=== PATIENT | female | born 1960 | race Caucasian/White ===

== ENCOUNTER → 2019-01-11 16:01 | Outpatient (CLI) | payer OTHER, SELFPAY ==
--- NOTE | 2019-01-11 | DI.MG.S_ITS ---
BILATERAL DIGITAL SCREENING MAMMOGRAM 3D/2D WITH CAD: 01/11/2019 CLINICAL: Routine screening. Comparison is made to exams dated: 04/27/2017 mammogram, 04/23/2015 mammogram, and 11/08/2013 mammogram - [facility]. The tissue of both breasts is heterogeneously dense. This may lower the sensitivity of mammography. Current study was also evaluated with a Computer Aided Detection (CAD) system. No significant masses, calcifications, or other findings are seen in either breast. There has been no significant interval change. IMPRESSION: NEGATIVE There is no mammographic evidence of malignancy. A 1 year screening mammogram is recommended. This exam was interpreted at Station ID: [id number]. NOTE: For mammograms, a report in lay terms will be sent to the patient. Approximately 15% of breast malignancies will not be visualized mammographically. In the management of a palpable breast mass, a negative mammogram must not discourage biopsy of a clinically suspicious lesion. Electronically Signed By: Jerry toussaint/[email or web address]:01/17/2019 11:59:42 letter sent: Normal Exam ACR BI-RADS Category 1: Negative [id number]
== END ==
PROVIDERS: Visit Provider Internal Medicine
DX: Z12.31 Encounter for screening mammogram for malignant neoplasm of breast (principal)
CPT/HCPCS: 77063; 77067

== ENCOUNTER → 2020-04-30 19:19 | Outpatient (ROUT) | payer MEDICARE, SELFPAY ==
[2020-04-30 19:46] LABS: Add Manual Diff / Slide Review NO; Basophils Absolute Auto 0 /uL (0-100); Basophils Percent Auto 0.7 % (0-2); Eosinophils Absolute Auto 100 /uL (0-450); Hematocrit 35.6 % (36-46); Hemoglobin 11.6 g/dL (12.0-16.0); Lymphocytes Absolute Auto 1000 /uL (1100-4500); Lymphocytes Percent Auto 13.7 % (25-40); Mean Corpuscular HGB Conc 32.6 % (30-36); Mean Corpuscular Hemoglobin 28.8 PG (26-34); Mean Corpuscular Volume 88.2 fL (80-100); Monocytes Absolute Auto 400 /uL (0-900); Monocytes Percent Auto 6.4 % (3-14); Neutrophils Absolute Auto 5400 /uL (1500-7000); Neutrophils Percent Auto 78.2 % (50-75); Platelet Count 165 X10^3/uL (150-400); Red Blood Cell Count 4.04 X10^6/uL (4.0-5.2); Red Cell Distribution Width 13.9 % (11.6-14.8)
[2020-04-30 19:58] LABS: Alanine Aminotransferase 28 IU/L (<35); Albumin 3.9 g/dL (3.5-5.0); Albumin Globulin Ratio 1.2 (1.0-2.8); Alkaline Phosphatase 106 U/L (38-126); Aspartate Aminotransferase 37 IU/L (14-36); BUN Creatinine Ratio 30.8 (6-22); Bilirubin Total 0.6 mg/dL (0.2-1.3); Blood Urea Nitrogen 36 mg/dL (7-17); Calcium 9.6 mg/dL (8.4-10.2); Carbon Dioxide 34 mmol/L (22-32); Chloride 102 mmol/L (98-107); Cholesterol 139 mg/dL (140-199); Estimated Glomerular Filt Rate 47.7 mL/min (>60); Globulin 3.2 g/dL (1.7-4.1); Glucose 154 mg/dL (70-100); HDL Cholesterol 53 mg/dL (40-60); HEMOLYSIS < 15 (0-50); LDL Cholesterol Calculated 59 mg/dL (<100); Potassium 4.6 mmol/L (3.4-5.1); Sodium 139 mmol/L (137-145); Total Protein 7.1 g/dL (6.3-8.2); Triglycerides 133 mg/dL (35-150)
[2020-04-30 20:26] LABS: TSH w/ Reflex to FT4 2.97 uIU/mL (0.47-4.68)
== END ==
PROVIDERS: Visit Provider Internal Medicine
DX: I25.10 Atherosclerotic heart disease of native coronary artery without angina pectoris (principal); E78.2 Mixed hyperlipidemia
CPT/HCPCS: 80053; 80061; 84443; 85025

== ENCOUNTER → 2020-07-10 19:33 | Outpatient (ROUT) | payer OTHER, SELFPAY ==
[2020-07-10 20:10] LABS: HEMOLYSIS < 15 (0-50); Potassium 4.5 mmol/L (3.4-5.1)
[2020-07-10 20:11] LABS: BUN Creatinine Ratio 38.7 (6-22); Blood Urea Nitrogen 46 mg/dL (7-17); Calcium 9.4 mg/dL (8.4-10.2); Carbon Dioxide 34 mmol/L (22-32); Chloride 101 mmol/L (98-107); Estimated Glomerular Filt Rate 46.6 mL/min (>60); Glucose 125 mg/dL (70-100); Sodium 137 mmol/L (137-145)
== END ==
PROVIDERS: PCP Internal Medicine; Visit Provider Internal Medicine
DX: N17.9 Acute kidney failure, unspecified (principal)
CPT/HCPCS: 80048

== ENCOUNTER 2021-10-23 15:16 | Emergency (ER) | payer MEDICARE, SELFPAY ==
[2021-10-23] VITALS (22 sets, daily range): BP systolic 128–159; BP diastolic 58–86; PULSE 61–85; RESP 17–29; TEMP 38.1; O2SAT 91–97
--- NOTE | 2021-10-23 16:31 | DI.RAD.S_ITS ---
PROCEDURE: XR CHEST 1V INDICATIONS: suspected sepsis TECHNIQUE: One view of the chest was acquired. COMPARISON: [facility], , CHEST 2 VIEW, 06/26/2017, 16:05. FINDINGS: Surgical changes and devices: None. Lungs and pleura: Lungs are clear. No pleural effusions or pneumothorax. Mediastinum: Mediastinal contours appear normal. Heart size is enlarged. Bones and chest wall: No suspicious bony lesions. Overlying soft tissues appear unremarkable. IMPRESSION: Cardiomegaly without vascular congestion. Underlying mild chronic interstitial changes. No focal infiltrate. Approved by: Mickey Gerber M.D. on 10/23/2021 at 16:40
[2021-10-23 16:41] LABS: Add Manual Diff / Slide Review NO; Basophils Absolute Auto 0 /uL (0-100); Basophils Percent Auto 0.4 % (0-2); Eosinophils Absolute Auto 0 /uL (0-450); Eosinophils Percent Auto 0.1 % (2-4); Hematocrit 33.1 % (36-46); Hemoglobin 11.2 g/dL (12.0-16.0); Lymphocytes Absolute Auto 200 /uL (1100-4500); Lymphocytes Percent Auto 4.1 % (25-40); Mean Corpuscular Hemoglobin 29.6 PG (26-34); Mean Corpuscular Volume 87.3 fL (80-100); Monocytes Absolute Auto 800 /uL (0-900); Monocytes Percent Auto 14.3 % (3-14); Neutrophils Absolute Auto 4400 /uL (1500-7000); Neutrophils Percent Auto 81.1 % (50-75); Platelet Count 128 X10^3/uL (150-400); Red Blood Cell Count 3.79 X10^6/uL (4.0-5.2); White Blood Cell Count 5.4 X10^3/uL (4.5-11.0)
[2021-10-23 16:46] LABS: Alanine Aminotransferase 23 IU/L (<35); Albumin 3.7 g/dL (3.5-5.0); Albumin Globulin Ratio 1.2 (1.0-2.8); Alkaline Phosphatase 77 U/L (38-126); Aspartate Aminotransferase 41 IU/L (14-36); BUN Creatinine Ratio 33.6 (6-22); Bilirubin Total 0.5 mg/dL (0.2-1.3); Blood Urea Nitrogen 43 mg/dL (7-17); Calcium 8.9 mg/dL (8.4-10.2); Carbon Dioxide 24 mmol/L (22-32); Chloride 108 mmol/L (98-107); Estimated Glomerular Filt Rate 48 mL/min (>60); Globulin 3.1 g/dL (1.7-4.1); Glucose 311 mg/dL (70-100); HEMOLYSIS < 15 (0-50); Lactate (Lactic Acid) 1.5 mmol/L (0.7-2.1); Lipase 48 U/L (23-300); Potassium 4.9 mmol/L (3.4-5.1); Sodium 140 mmol/L (137-145); Total Protein 6.8 g/dL (6.3-8.2)
[2021-10-23] MEDS: SODIUM CHLORIDE 0.9% 1,000 ML 1000 ML IV (17:00)
[2021-10-23 17:02] LABS: Procalcitonin 0.08 ng/mL (<0.5)
--- NOTE | 2021-10-23 17:33 | ED_ITS ---
HPI - Fever General Chief Complaint: Fever Stated Complaint: hacking, coughing, lethargic, Covid + Time Seen by Provider: 10/23/21 16:24 Source: patient and family Mode of arrival: Wheelchair Limitations: no limitations History of Present Illness HPI Narrative: The patient became ill yesterday. She has fatigue and myalgia. She has a mild headache. She denies sore throat. She does have cough, but no dyspnea. She has no nausea vomiting. Home testing was positive for COVID-19. She has loss of appetite, nothing to eat or drink. She has no urinary complaints. She has no rashes. She has type 1 diabetes, her glucose was 135 this morning. She uses an insulin pump. Related Data Home Medications Medication Instructions Recorded Confirmed INSULIN HUMAN LISPRO 10ML (HUMALOG) #0 06/16/10 02/26/21 Niacin (Niacinamide) #0 06/16/10 02/26/21 OMEPRAZOLE #0 06/16/10 02/26/21 ROSUVASTATIN CALCIUM (Crestor) #0 06/16/10 02/26/21 Respironics Dreamstation BIPAP #1 ea 08/04/18 02/26/21 losartan PO 01/26/19 02/26/21 FUROSEMIDE (Lasix) 20 mg PO #0 10/18/20 02/26/21 metoprolol succinate 25 mg 25 mg PO DAILY 10/18/20 02/26/21 tablet,extended release 24 hr Allergies Allergy/AdvReac Type Severity Reaction Status Date / Time No Known Drug Allergies Allergy Verified 10/23/21 15:31 Review of Systems Constitutional Constitutional: Reports as per HPI, Reports anorexia, Reports body ache(s), Reports chills, Denies excessive sweating, Reports fatigue, Denies fever(s), Reports headache(s), Reports malaise and Reports weakness Eyes Eyes: Denies change in vision ENT Ears, Nose, Mouth, and Throat: Denies vertigo, Denies dizziness, Denies otalgia and Reports headache(s) Cardiovascular Cardiovascular: Denies chest pain, Denies rapid heart rate, Denies pedal edema, Denies edema and Denies dyspnea Respiratory Respiratory: Reports cough and Denies dyspnea Gastrointestinal Gastrointestinal: Denies abdominal pain, Denies cramping, Denies nausea and Denies vomiting Genitourinary Genitourinary: Denies dysuria Musculoskeletal Musculoskeletal: Reports arthralgias, Reports back pain and Reports myalgias Integumentary/Breasts Skin/Breast: Denies new lesions and Denies rash Neurologic Neurologic: Denies vertigo, Denies dizziness, Reports headache(s) and Reports weakness Endocrine Endocrine: Denies excessive sweating and Reports fatigue Hematologic/Lymphatic On Anticoagulants: No Patient History Medical History Central sleep apnea (~2011) Conductive hearing loss History of coma Hypercholesterolemia Hypertension Insomnia 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 Obesity (BMI 30-39.9) Obstructive sleep apnea of adult (~2011) Primary insomnia Snoring Tinea pedis (09/22/02) Type I diabetes mellitus Surgical History Endometriosis (03/17/02) Social History marital status: details: remington Wheatley, lives in [place] number of children: 3 household members: spouse and children lives independently: Yes caregiver/support person: No housing: house occupational status: disabled substance use type: does not use Exam Initial Vital Signs Initial Vital Signs: Vital Signs Temperature 100.5 F H 10/23/21 15:27 Pulse Rate 79 10/23/21 15:27 Respiratory Rate 18 10/23/21 15:27 Blood Pressure 156/69 H 10/23/21 15:27 Pulse Oximetry 97 10/23/21 15:27 Const General: cooperative, healthy appearing and comfortable Limitations: mental status not altered [facility] Head: normal to inspection, normocephalic and atraumatic Mouth: oropharynx normal Throat: posterior oropharynx normal Eyes General: Yes appearance normal, both eyes and all related structures Pupils: PERRL and pupil size EOM: EOM intact bilaterally and EOM abnormal Neck Neck: full ROM, no meningeal signs and No lymphadenopathy Chest Chest: normal palpation of entire chest wall Resp Auscultation: clear to auscultation bilaterally Cardio Rate: regular rate Rhythm: regular rhythm Heart Sounds: S1 normal, S2 normal, no click, no murmurs and no rubs GI Inspection: normal to inspection Palpation: soft, No guarding, No mass and No tender Percussion: normal to percussion Auscultation: normal bowel sounds General: No CVA tenderness Back/Spine/Pelvis Back: other (Generalized back pain. No visual defects.) Skin General: no rashes or lesions noted Neuro General: patient alert, patient awake, patient oriented x3, no meningeal signs and no focal motor deficits Extrem General: normal to inspection, full ROM, no pedal edema and no calf tenderness Psych Mental Status: mental status grossly normal Course Course Course Narrative: Patient has improved with IV fluids, and Tylenol for body aches. She has type 1 diabetes. Renal insufficiency is noted on the lab work. Her respiratory status is good. She is feeling much better, I am suggesting delaying any decision of taking Paxlovid. She can discuss the medication with her doctor tomorrow if she is not improving. I informed her that a renal dosing protocol is available. Orders Ordered: ED Orders 10/23/21 15:40 Complete Blood Count AUTO DIFF Stat Comprehensive Metabolic Panel Stat Lactate (Lactic Acid) Stat Lipase Stat Procalcitonin Stat 10/23/21 16:31 XR chest 1V Stat EKG-12 Lead Stat RT Consult Eval and Treat NOW 10/23/21 17:00 Respiratory Panel (Film Array) Stat 10/23/21 17:10 Blood Culture Stat Discontinued Medications Acetaminophen (Acetaminophen 325 Mg Tablet) 975 mg PO NOW ONE Stop: 10/23/21 17:36 Last Admin: 10/23/21 18:39 Dose: 975 mg Documented by: PER Sodium Chloride (Normal Saline 0.9%) 1,000 mls @ 1,000 mls/hr IV BOLUS ONE Stop: 10/23/21 17:30 Last Infusion: 10/23/21 19:07 Dose: 0 mls/hr Documented by: Admin: 10/23/21 17:00 Dose: 1,000 mls/hr Documented by: MODESTA Vital Signs Vital signs: Vital Signs - 8 hr 10/23/21 15:27 10/23/21 15:43 10/23/21 16:00 Temperature 100.5 F H Pulse Rate 79 79 82 Respiratory Rate 18 Blood Pressure 156/69 H Pulse Oximetry 97 96 93 10/23/21 16:30 10/23/21 17:00 10/23/21 17:15 Temperature Pulse Rate 79 85 81 Respiratory Rate 24 Blood Pressure 139/67 Pulse Oximetry 95 95 95 MDM - Fever Lab Data Result diagrams: 10/23/21 15:40 10/23/21 15:40 Labs: Lab Results 10/23/21 10/23/21 10/23/21 Range/Units 15:40 15:40 15:40 WBC 5.4 (4.5-11.0) X10^3/uL RBC 3.79 L (4.0-5.2) X10^6/uL Hgb 11.2 L (12.0-16.0) g/dL Hct 33.1 L (36-46) % MCV 87.3 (80-100) fL MCH 29.6 (26-34) PG MCHC 34.0 (30-36) % RDW 15.0 H (11.6-14.8) % Plt Count 128 L (150-400) X10^3/uL Neut % (Auto) 81.1 H (50-75) % Lymph % (Auto) 4.1 L (25-40) % Haralson % (Auto) 14.3 H (3-14) % Eos % (Auto) 0.1 L (2-4) % Baso % (Auto) 0.4 (0-2) % Neut # (Auto) 4400 (9743-7212) /uL Lymph # (Auto) 200 L (4606-7625) /uL Haralson # (Auto) 800 (0-900) /uL Eos # (Auto) 0 (0-450) /uL Baso # (Auto) 0 (0-100) /uL Sodium 140 (137-145) mmol/L Potassium 4.9 (3.4-5.1) mmol/L Chloride 108 H (98-107) mmol/L Carbon Dioxide 24 (22-32) mmol/L BUN 43 H (7-17) mg/dL Creatinine 1.28 H (0.52-1.04) mg/dL Estimated GFR 48 L (>60) mL/min BUN/Creatinine Ratio 33.6 H (6-22) Glucose 311 H (70-100) mg/dL Lactate 1.5 (0.7-2.1) mmol/L Calcium 8.9 (8.4-10.2) mg/dL Total Bilirubin 0.5 (0.2-1.3) mg/dL AST 41 H (14-36) IU/L ALT 23 (<35) IU/L Alkaline Phosphatase 77 (38-126) U/L Total Protein 6.8 (6.3-8.2) g/dL Albumin 3.7 (3.5-5.0) g/dL Globulin 3.1 (1.7-4.1) g/dL Albumin/Globulin Ratio 1.2 (1.0-2.8) Lipase 48 (23-300) U/L Procalcitonin 0.08 (<0.5) ng/mL Chlamy pneumoniae PCR (Not Detect) Adenovirus (PCR) (Not Detect) B. pertussis DNA (PCR) (Not Detecte) B.parapertussis DNA PCR (Not Detecte) Coronavirus OC43 (PCR) (Not Detect) Coronavirus HKU1 (PCR) (Not Detect) Coronavirus 229E (PCR) (Not Detect) SARS-CoV-2 (PCR) (Not Detecte) Coronavirus NL63 (PCR) (Not Detect) Human Metapneumovir PCR (Not Detect) Influenza Type A (PCR) (Not Detect) Influenza Type B (PCR) (Not Detect) M. pneumoniae (PCR) (Not Detect) Parainfluenza 1 (PCR) (Not Detect) Parainfluenza 2 (PCR) (Not Detect) Parainfluenza 3 (PCR) (Not Detect) Parainfluenza 4 (PCR) (Not Detect) RSV (PCR) (Not Detect) Entero/Rhino (PCR) (Not Detect) 10/23/21 Range/Units 17:00 WBC (4.5-11.0) X10^3/uL RBC (4.0-5.2) X10^6/uL Hgb (12.0-16.0) g/dL Hct (36-46) % MCV (80-100) fL MCH (26-34) PG MCHC (30-36) % RDW (11.6-14.8) % Plt Count (150-400) X10^3/uL Neut % (Auto) (50-75) % Lymph % (Auto) (25-40) % Haralson % (Auto) (3-14) % Eos % (Auto) (2-4) % Baso % (Auto) (0-2) % Neut # (Auto) (4559-8030) /uL Lymph # (Auto) (6140-4163) /uL Haralson # (Auto) (0-900) /uL Eos # (Auto) (0-450) /uL Baso # (Auto) (0-100) /uL Sodium (137-145) mmol/L Potassium (3.4-5.1) mmol/L Chloride (98-107) mmol/L Carbon Dioxide (22-32) mmol/L BUN (7-17) mg/dL Creatinine (0.52-1.04) mg/dL Estimated GFR (>60) mL/min BUN/Creatinine Ratio (6-22) Glucose (70-100) mg/dL Lactate (0.7-2.1) mmol/L Calcium (8.4-10.2) mg/dL Total Bilirubin (0.2-1.3) mg/dL AST (14-36) IU/L ALT (<35) IU/L Alkaline Phosphatase (38-126) U/L Total Protein (6.3-8.2) g/dL Albumin (3.5-5.0) g/dL Globulin (1.7-4.1) g/dL Albumin/Globulin Ratio (1.0-2.8) Lipase (23-300) U/L Procalcitonin (<0.5) ng/mL Chlamy pneumoniae PCR Not detected (Not Detect) Adenovirus (PCR) Not detected (Not Detect) B. pertussis DNA (PCR) Not detected (Not Detecte) B.parapertussis DNA PCR Not detected (Not Detecte) Coronavirus OC43 (PCR) Not detected (Not Detect) Coronavirus HKU1 (PCR) Not detected (Not Detect) Coronavirus 229E (PCR) Not detected (Not Detect) SARS-CoV-2 (PCR) Detected H (Not Detecte) Coronavirus NL63 (PCR) Not detected (Not Detect) Human Metapneumovir PCR Not detected (Not Detect) Influenza Type A (PCR) Not detected (Not Detect) Influenza Type B (PCR) Not detected (Not Detect) M. pneumoniae (PCR) Not detected (Not Detect) Parainfluenza 1 (PCR) Not detected (Not Detect) Parainfluenza 2 (PCR) Not detected (Not Detect) Parainfluenza 3 (PCR) Not detected (Not Detect) Parainfluenza 4 (PCR) Not detected (Not Detect) RSV (PCR) Not detected (Not Detect) Entero/Rhino (PCR) Not detected (Not Detect) Imaging Data Chest x-ray: Radiologist's Impression: ?Cardiomegaly without vascular congestion.? Underlying mild chronic interstitial changes.? No focal infiltrate. ? ECG Data Attestation: I personally reviewed and interpreted this ECG as follows: (Normal sinus rhythm rate 85 beats per minute. RBBB. LVH with repolarization ab normality. No acute ST elevation) Discharge Plan Departure Patient Disposition: Home Clinical Impression: COVID-19, Type I diabetes mellitus, Renal insufficiency Instructions: DI for COVID-19 (Suspected or Confirmed ) Activity Restrictions/Additional Instructions: Our testing has confirmed COVID-19. Your body aches, and the knowledge that you do not feel well as obvious. Your lungs are function well, your respiratory status is quite good. You would qualify for a COVID antiviral medication Paxlovid. However, your kidney function is poor, probably related to your diabetes. Paxlovid has a significant side effect, kidney injury. Your clinically doing well. My suggest is you take Tylenol for pain, rest and drink plenty of fluids. Paxlovid can be used in decreased dosing with poor kidneys, but you still must be concerned about your kidneys. If you are not feeling better tomorrow, contact your doctor and discuss the use of this medication once again. If you are feeling worse return to the ER. Prescriptions: No Action INSULIN HUMAN LISPRO 10ML (HUMALOG) Qty: 0 0RF Niacin (Niacinamide) Qty: 0 0RF OMEPRAZOLE Qty: 0 0RF ROSUVASTATIN CALCIUM (Crestor) Qty: 0 0RF FUROSEMIDE (Lasix) 20 mg PO Qty: 0 0RF (DME) Respironics Dreamstation BIPAP Qty: 1 0RF Dose Instruction: As directed Label Comments: Pressure: EPAP 5 IPAP 25 DME: [facility] Rx Instructions: As directed losartan PO 0RF metoprolol succinate 25 mg tablet extended release 24 hr 25 mg PO DAILY 0RF Referrals: Ángel Avery MD [Primary Care Provider] -
[2021-10-23 18:37] LABS: Adenovirus Not Detected (Not Detect); B. parapertussis Not Detected (Not Detecte); Bordetella pertussis Not Detected (Not Detecte); Chlamydophila pneumoniae Not Detected (Not Detect); Coronavirus 229E Not Detected (Not Detect); Coronavirus HKU1 Not Detected (Not Detect); Coronavirus NL 63 Not Detected (Not Detect); Coronavirus OC43 Not Detected (Not Detect); Human Metapneumovirus Not Detected (Not Detect); Human Rhinovirus/Enterovirus Not Detected (Not Detect); Influenza A Not Detected (Not Detect); Influenza B Not Detected (Not Detect); Mycoplasma pneumoniae Not Detected (Not Detect); Parainfluenza Virus 1 Not Detected (Not Detect); Parainfluenza Virus 2 Not Detected (Not Detect); Parainfluenza Virus 3 Not Detected (Not Detect); Parainfluenza Virus 4 Not Detected (Not Detect); Respiratory Syncytial Virus Not Detected (Not Detect); SARS- CoV-2 Detected (Not Detecte)
[2021-10-23] MEDS: ACETAMINOPHEN 325 MG TABLET 975 MG PO (18:39)
[2021-10-23 19:42] LABS: RBC Urine 1-5/HPF (0-5/HPF); Squamous Epithelial Cell Urine 0-1 /HPF (0-5/HPF); WBC Urine 10-30/HPF (0-5/HPF)
[2021-10-23 19:43] LABS: Amorphous Sediment Urine 1+; Bacteria Urine Many (>30); Culture Indicated Urine Specimen Cultured
[2021-10-23 20:22] LABS: Creatine Kinase 727 U/L (30-135)
[2021-10-23 20:50] LABS: CKMB % Relative Index 0.6 % (1.5-5.0); Creatine Kinase MB 4.07 ng/mL (<2.37)
[2021-10-23 20:51] LABS: Troponin I 0.351 ng/mL (0.01-0.034)
--- NOTE | 2021-10-23 20:52 | PC.NURSE ---
2050 critical result troponin 0.351 MD Queen notified
[2021-10-23] MEDS: cefTRIAXone 1,000 MG in SODIUM CHLORIDE 0.9% 100 ML 200 MG IV (20:53)
[2021-10-23 21:14] LABS: Prothrombin Time 11.3 SECONDS (10.1-12.7)
[2021-10-23] MEDS: ASPIRIN 81 MG CHEW TAB 324 MG PO (21:17)
[2021-10-23 21:22] LABS: PTT Partial Thromboplastin Tim 35 SECONDS (26.4-36.2)
[2021-10-23] MEDS: HEPARIN 5,000 UNIT/ML VIAL 5000 UNIT IV (21:40)
[2021-10-23] MEDS: HEPARIN DRIP 25,000 UNIT/500 ML IV.SOLN 20 UNIT IV (21:41)
--- NOTE | 2021-10-23 22:10 | DI.CT.S_ITS ---
PROCEDURE: CT ANGIO CHEST PE PROTOCOL INDICATIONS: Chest pain, shortness of breath, tachycardia TECHNIQUE: After the administration of intravenous contrast, 2 mm thick sections acquired from the pulmonary apices to the posterior costophrenic angles. 3-dimensional maximum intensity projection (MIP) coronal and sagittal reformats were then acquired through the thorax. For radiation dose reduction, the following was used: automated exposure control, adjustment of mA and/or kV according to patient size. COMPARISON: [facility], CR, XR CHEST 1V, 10/23/2021, 16:51. FINDINGS: Image quality: There is mild motion artifact. Pulmonary arteries: Pulmonary arteries demonstrate no intraluminal filling defects to suggest central pulmonary embolism. There is enlargement of the pulmonary arteries, with the main pulmonary artery measuring up to 3.4 cm, suggestive of pulmonary arterial hypertension. Lungs and pleura: There is mild dependent atelectasis bilaterally. There are bilateral indistinct scattered areas of ground-glass opacity with minimal septal thickening suggestive of pulmonary edema. No pleural effusions or pneumothorax. Central and peripheral airways are patent. Mediastinum: Heart size is enlarged, without pericardial effusion. No mediastinal or hilar adenopathy. Thoracic aorta is normal in caliber and enhancement. Esophagus is normal in caliber, with a moderate-sized hiatal hernia. Bones and chest wall: No suspicious bony lesions. Ribs and thoracic spine appear intact throughout. Thyroid gland demonstrates no discrete nodules. No axillary or supraclavicular adenopathy. Abdomen: Visualized upper abdomen demonstrates a few dependent gallstones in the partially visualized gallbladder. No associated gallbladder wall thickening or pericholecystic fluid. IMPRESSION: 1. No evidence of pulmonary embolism. There is enlargement of the pulmonary arteries suggestive of pulmonary arterial hypertension. 2. Bilateral scattered indistinct ground-glass opacities with minimal septal thickening suggestive of pulmonary edema. The differential also includes atypical pneumonia. 3. Cardiomegaly. 4. Moderate-sized hiatal hernia. 5. Cholelithiasis in the visualized upper abdomen without definite CT evidence of cholecystitis. Dictated by: Levy Herman M.D. on 10/23/2021 at 22:58 Approved by: Levy Herman M.D. on 10/23/2021 at 23:02
[2021-10-23 22:35] LABS: NT-proBNP (BNP-Adult 18+) 4720 pg/mL (<125)
[2021-10-23] MEDS: FUROSEMIDE 40 MG/4 ML VIAL IV (23:24)
[2021-10-24] VITALS (60 sets, daily range): BP systolic 127–171; BP diastolic 57–78; PULSE 45–77; RESP 12–29; O2SAT 91–97
[2021-10-24] MEDS: METOPROLOL ER 25 MG TABLET PO (00:16)
[2021-10-24] MEDS: LOSARTAN 50 MG TABLET PO ×2 (00:16→11:46)
[2021-10-24 01:06] LABS: Creatine Kinase 1142 U/L (30-135)
[2021-10-24 01:21] LABS: CKMB % Relative Index 0.4 % (1.5-5.0); Creatine Kinase MB 4.89 ng/mL (<2.37)
[2021-10-24 01:22] LABS: Troponin I 0.416 ng/mL (0.01-0.034)
[2021-10-24 04:22] LABS: PTT Partial Thromboplastin Tim 191 SECONDS (26.4-36.2)
--- NOTE | 2021-10-24 06:43 | DI.ECHO.S_ITS ---
[place] +---------+ [facility] +---------+ : : [address] : : : : [id number] : : : : Phone: [phone]+ Echocardiogram Report + + :Name: CHRISTINE OCHOA Study Date: 10/24/2021 Height: 67 in : :[facility] ReadingLocation: Weight: 230 lb : : Gender: Female BSA: 2.1 m2 : :: 1960 Age: 61 yrs BP: 150/70 mmHg: :Reason For Study: NSTEMI : :Ordering Physician: FRANCISCO, : :ODALIS Performed By: Malu Villaseñor : :Referring: ODALIS SINGH : + + Interpretation Summary 1) Severe increased left ventricular thickness (concentric) with normal size and normal systolic function (EF about 55%). 2) There are no obvious focal wall motion abnormalities noted but poor endocardial definition reduces the sensitivity for the detection of such. 3) Mildly enlarged right ventricle with normal function. 4) There is mild to moderate mitral regurgitation. 5) Right ventricular systolic pressure is estimated to be 28 mmHg plus the clinically estimated CVP which cannot be estimated on this exam. 6) Compared to the Echo done 10/24/2021, LV thickness has increased from mild to severe. Consider cardiac amyloidosis as a possible cause of LVH. Procedure: A two-dimensional transthoracic echocardiogram with color flow and Doppler was performed. The study quality was technically adequate. Comparison is made with the echocardiogram of 03/20/2011. The patient was in sinus rhythm with heart rates between 63-69 bpm during the exam. Left Ventricle: The left ventricle is normal in size. There is severe concentric left ventricular hypertrophy. Left ventricular ejection fraction is estimated to be 55 +/- 5%. There are no obvious focal wall motion abnormalities noted but poor endocardial definition reduces the sensitivity for the detection of such. Right Ventricle: The right ventricle is mildly dilated. The right ventricular systolic function is normal. Atria: The left atrium is mildly dilated. The right atrium is mildly dilated. There is no Doppler evidence for an interatrial shunt. Mitral Valve: The mitral valve leaflets appear mildly thickened, but open well. There is mild to moderate mitral regurgitation. Aortic Valve: The aortic valve is trileaflet. The aortic valve opens well. There is no aortic valve stenosis. No aortic regurgitation is present. Tricuspid Valve: The tricuspid valve is normal in structure and function. There is mild tricuspid regurgitation. Right ventricular systolic pressure is estimated to be 28 mmHg plus the clinically estimated CVP which cannot be estimated on this exam. Pulmonic Valve: The pulmonic valve leaflets are thin and pliable; valve motion is normal. There is mild pulmonic regurgitation. Great Vessels: The aortic root is normal size. The ascending aorta is at the upper limits of normal in size. The inferior vena cava was not well visualized. Pericardium/ Pleura There is no pericardial effusion. There is no pleural effusion. MMode/2D Measurements & Calculations LVIDd: 4.5 cm LVOT diam: 2.0 cm LVIDs: 3.3 cm Ao root diam: 3.0 cm FS: 28.1 % asc Aorta Diam: 3.7 cm IVSd: 2.0 cm Ao Arch Diam (Prox Trans): 3.0 cm LVPWd: 1.6 cm LV mora. diameter/BSA (cm/m^2): 2.1 LV sys. diameter/BSA (cm/m^2): 1.5 LA A2 area: 25.8 cm2 RA long axis: 5.5 cm LA A4 area: 22.8 cm2 RA area: 21.9 cm2 LA length (vol): 6.2 cm RA vol: 74.3 ml LA vol: 80.7 ml RA : 34.6 ml/m2 LA vol index: 37.6 ml/m2 IVC diam: 2.2 cm RVD1 (basal): 4.4 cm RVD2 (mid): 3.6 cm TAPSE: 2.1 cm Doppler Measurements & Calculations Ao V2 max: 136.0 cm/sec LVOT Max Nilton: 96.4 cm/sec Ao V2 mean: 95.1 cm/sec LV V1 max P.7 mmHg Ao max P.4 mmHg LV V1 VTI: 18.3 cm Ao mean P.1 mmHg RUT(I,D): 2.2 cm2 Ao V2 VTI: 24.6 cm RUT(V,D): 2.1 cm2 sev ratio: 0.74 RUT indexed to BSA (cm^2/m^2): 1.0 MV E max nilton: 114.1 cm/sec TR max nilton: 262.8 cm/sec MV A max nilton: 34.3 cm/sec TR max P.6 mmHg MV E/A: 3.3 PA V2 max: 104.2 cm/sec Med Peak E' Nilton: 3.9 cm/sec PA V2 mean: 70.8 cm/sec E/E' med: 29.0 PA mean P.2 mmHg Lat Peak E' Nilton: 8.4 cm/sec PA pr(Accel): 39.6 mmHg E/E' lat: 13.6 E/e' average: 21.3 MV dec time: 0.27 sec SV(LVOT): 55.2 ml Reading Physician:12:50 PM
[2021-10-24] MEDS: FUROSEMIDE 40 MG/4 ML VIAL 20 MG IV (08:01)
[2021-10-24 10:11] LABS: Hematocrit 33.3 % (36-46)
[2021-10-24 10:28] LABS: PTT Partial Thromboplastin Tim 88 SECONDS (26.4-36.2)
[2021-10-24 10:35] LABS: Troponin I 0.389 ng/mL (0.01-0.034)
[2021-10-24 10:54] LABS: Blood Urea Nitrogen 38 mg/dL (7-17); Calcium 8.6 mg/dL (8.4-10.2); Carbon Dioxide 26 mmol/L (22-32); Chloride 109 mmol/L (98-107); Estimated Glomerular Filt Rate 55 mL/min (>60); Glucose 153 mg/dL (70-100); Potassium 4.3 mmol/L (3.4-5.1); Sodium 140 mmol/L (137-145)
--- NOTE | 2021-10-24 10:55 | PC.NURSE ---
Pure wick and bed linens changed at this time.
[2021-10-24 11:01] LABS: HEMOLYSIS 53 (0-50)
--- NOTE | 2021-10-24 16:15 | PC.NURSE ---
Still no acceptance from [facility] and low likely hoang of placement tonight. Put on [facility] list
[2021-10-24] MEDS: ACETAMINOPHEN 325 MG TABLET 975 MG PO (16:19)
[2021-10-24 18:31] LABS: PTT Partial Thromboplastin Tim 61 SECONDS (26.4-36.2)
[2021-10-24 18:48] LABS: Troponin I 0.399 ng/mL (0.01-0.034)
[2021-10-24] MEDS: PANTOPRAZOLE 40 MG VIAL IV (19:17)
[2021-10-24] MEDS: METOPROLOL ER 25 MG TABLET 12.5 MG PO (19:17)
--- NOTE | 2021-10-24 19:52 | PC.NURSE ---
Clear liquid and sugar free diet delivered to patient.
[2021-10-24] MEDS: ASPIRIN 81 MG CHEW TAB 324 MG PO (21:21)
[2021-10-24] MEDS: cefTRIAXone 1,000 MG in SODIUM CHLORIDE 0.9% 100 ML 200 MG IV (21:21)
[2021-10-25] VITALS (26 sets, daily range): BP systolic 124–152; BP diastolic 58–69; PULSE 47–67; RESP 12–29; TEMP 37; O2SAT 93–98
[2021-10-25 06:24] LABS: Add Manual Diff / Slide Review NO; Basophils Absolute Auto 0 /uL (0-100); Basophils Percent Auto 0.6 % (0-2); Eosinophils Absolute Auto 0 /uL (0-450); Eosinophils Percent Auto 0.4 % (2-4); Lymphocytes Absolute Auto 800 /uL (1100-4500); Lymphocytes Percent Auto 22.8 % (25-40); Mean Corpuscular HGB Conc 33.4 % (30-36); Mean Corpuscular Hemoglobin 29.2 PG (26-34); Mean Corpuscular Volume 87.4 fL (80-100); Monocytes Absolute Auto 600 /uL (0-900); Monocytes Percent Auto 16.5 % (3-14); Neutrophils Absolute Auto 2000 /uL (1500-7000); Neutrophils Percent Auto 59.7 % (50-75); Platelet Count 110 X10^3/uL (150-400); Red Blood Cell Count 3.77 X10^6/uL (4.0-5.2); Red Cell Distribution Width 14.7 % (11.6-14.8); White Blood Cell Count 3.3 X10^3/uL (4.5-11.0)
[2021-10-25 06:43] LABS: BUN Creatinine Ratio 27.6 (6-22); Blood Urea Nitrogen 35 mg/dL (7-17); Calcium 8.4 mg/dL (8.4-10.2); Carbon Dioxide 29 mmol/L (22-32); Chloride 105 mmol/L (98-107); Creatine Kinase 1039 U/L (30-135); Estimated Glomerular Filt Rate 49 mL/min (>60); Glucose 118 mg/dL (70-100); HEMOLYSIS < 15 (0-50); Potassium 3.8 mmol/L (3.4-5.1); Sodium 140 mmol/L (137-145)
[2021-10-25 06:58] LABS: CKMB % Relative Index 0.5 % (1.5-5.0); Creatine Kinase MB 5.66 ng/mL (<2.37)
[2021-10-25 07:05] LABS: PTT Partial Thromboplastin Tim 74 SECONDS (26.4-36.2)
[2021-10-25 07:16] LABS: Troponin I 0.345 ng/mL (0.01-0.034)
[2021-10-25] MEDS: HEPARIN DRIP 25,000 UNIT/500 ML IV.SOLN 12 UNIT IV (08:13)
--- NOTE | 2021-10-25 11:43 | PC.NURSE ---
Heparin drip continued upon transfer with [facility] RN to [facility]. Discontinued in JUL per protocol.
== END 2021-10-25 11:30 | disposition short-term general hospital (02) ==
PROVIDERS: Emergency Medicine; Emergency Provider Emergency Medicine; PCP Internal Medicine
DX: U07.1 COVID-19 (principal); R50.9 Fever, unspecified; E10.9 Type 1 diabetes mellitus without complications; N28.9 Disorder of kidney and ureter, unspecified; R07.9 Chest pain, unspecified
CPT/HCPCS: 36415; 71045; 71275; 80048; 80053; 81003; 81015; 82550; 82553; 82962; 83605; 83690; 83880; 84145; 84484; 85014; 85018; 85025; 85610; 85730; 87040; 87077; 87086; 87186; 87633; 93005; 93306; 96361; 96365; 96366; 96367; 96375; 96376; 99285; C9113; J0696; J1644; J1940; Q9967

== ENCOUNTER → 2022-05-13 10:57 | Outpatient (CLI) | payer MEDICARE, SELFPAY | PROVIDERS: PCP Internal Medicine; Referring Provider Internal Medicine; Visit Provider Internal Medicine | DX: Z78.0 Asymptomatic menopausal state (principal); Z13.820 Encounter for screening for osteoporosis; Z90.710 Acquired absence of both cervix and uterus | CPT/HCPCS: 77080 ==